=== PATIENT | male | born 1965 | race Caucasian/White ===

== ENCOUNTER 2021-01-04 16:26 | Inpatient (IN) | payer OTHER ==
[~2021-01-04] VITALS: Ht 175.3 cm; Wt 108.0 kg
[2021-01-04 17:03] LABS: HEMOGLOBIN 14.9 gm/dl (14.0-17.5); RED BLOOD COUNT 4.12 M/UL (4.20-5.50); WHITE BLOOD COUNT 4.6 K/UL (4.5-11.0)
[2021-01-04 17:24] LABS: BUN/CREATININE RATIO 35 (0-10)
[2021-01-05 02:24] LABS: HEMOGLOBIN 13.3 gm/dl (14.0-17.5); RED BLOOD COUNT 3.76 M/UL (4.20-5.50); WHITE BLOOD COUNT 3.5 K/UL (4.5-11.0)
[2021-01-05 02:51] LABS: BUN/CREATININE RATIO 33 (0-10)
--- NOTE | 2021-01-05 04:32 | NUR ---
UNABLE TO OBTAIN MOST HISTORY FROM PATIENT, HE ONLY STATED HE NEVER WENT TO THE DOCTOR. DAUGHTER WAS AT BEDSIDE DURING ASSESSMENT AND DOESN'T THINK HE TAKES MEDICAITON AT HOME. SOME MEDICAL HISTORY OBTAINED FROM DAUGHTER AND CHARTED.
[2021-01-06 06:04] LABS: BUN/CREATININE RATIO 18 (0-10)
[2021-01-07 04:24] LABS: HEMOGLOBIN 12.6 gm/dl (14.0-17.5); RED BLOOD COUNT 3.53 M/UL (4.20-5.50); WHITE BLOOD COUNT 2.9 K/UL (4.5-11.0)
[2021-01-07 04:55] LABS: BUN/CREATININE RATIO 16 (0-10)
[2021-01-07 06:12] LABS: HBSAG SCREEN Negative (Negative); HEP A AB, IGM Negative (Negative); HEP B CORE AB, IGM Negative (Negative); HEP C VIRUS AB <0.1 (0.0-0.9)
[2021-01-08 03:08] LABS: HEMOGLOBIN 12.8 gm/dl (14.0-17.5); RED BLOOD COUNT 3.6 M/UL (4.20-5.50); WHITE BLOOD COUNT 4.4 K/UL (4.5-11.0)
[2021-01-08 03:57] LABS: BUN/CREATININE RATIO 20 (0-10)
[2021-01-09 03:02] LABS: HEMOGLOBIN 12.5 gm/dl (14.0-17.5); RED BLOOD COUNT 3.53 M/UL (4.20-5.50); WHITE BLOOD COUNT 5.4 K/UL (4.5-11.0)
[2021-01-09 03:26] LABS: BUN/CREATININE RATIO 27 (0-10)
[2021-01-10 05:54] LABS: BUN/CREATININE RATIO 36 (0-10)
[2021-01-10 10:29] LABS: HEMOGLOBIN 13.2 gm/dl (14.0-17.5); RED BLOOD COUNT 3.71 M/UL (4.20-5.50); WHITE BLOOD COUNT 6.1 K/UL (4.5-11.0)
[2021-01-10 16:11] LABS: A/G RATIO 0.9 (0.7-1.7); ALBUMIN 3.1 g/dL (2.9-4.4); ALPHA-1-GLOBULIN 0.5 g/dL (0.0-0.4); BETA GLOBULIN 1.3 g/dL (0.7-1.3); GAMMA GLOBULIN 0.8 g/dL (0.4-1.8); GLOBULIN, TOTAL 3.6 g/dL (2.2-3.9); IMMUNOGLOBULIN A, QN, SERUM 584 mg/dL (90-386); IMMUNOGLOBULIN G, QN, SERUM 923 mg/dL (603-1613); IMMUNOGLOBULIN M, QN, SERUM 55 mg/dL (20-172); M-SPIKE Not Observed g/dL (Not Observed); PROTEIN, TOTAL, SERUM 6.7 g/dL (6.0-8.5)
[2021-01-11 04:39] LABS: HEMOGLOBIN 12.6 gm/dl (14.0-17.5); RED BLOOD COUNT 3.62 M/UL (4.20-5.50); WHITE BLOOD COUNT 6.5 K/UL (4.5-11.0)
[2021-01-11 05:08] LABS: BUN/CREATININE RATIO 37 (0-10)
--- NOTE | 2021-01-11 19:14 | NUR ---
patient ambulating in hallway using walker . tolerating wel without complication.
[2021-01-12 04:22] LABS: HEMOGLOBIN 12.9 gm/dl (14.0-17.5); RED BLOOD COUNT 3.71 M/UL (4.20-5.50); WHITE BLOOD COUNT 6.2 K/UL (4.5-11.0)
[2021-01-12 04:46] LABS: BUN/CREATININE RATIO 40 (0-10)
[2021-01-13 03:12] LABS: HEMOGLOBIN 13.7 gm/dl (14.0-17.5); RED BLOOD COUNT 3.93 M/UL (4.20-5.50); WHITE BLOOD COUNT 6.5 K/UL (4.5-11.0)
[2021-01-13 03:26] LABS: BUN/CREATININE RATIO 33 (0-10)
[2021-01-13] MEDS ORDERED: BETAPACE 80MG T80 MG PO (12:22)
[2021-01-13] MEDS ORDERED: AMLODIPINE BESYL5 MG PO (12:22)
[2021-01-13] MEDS ORDERED: VITAMIN B-650 MG PO (12:22)
[2021-01-13] MEDS ORDERED: ELIQUIS 5 MG TAB5 MG PO (12:22)
[2021-01-13] MEDS ORDERED: VITAMIN B-1100 M1 PO (12:22)
[2021-01-13] MEDS ORDERED: CATAPRES 0.1MG0.1 MG PO (12:22)
[2021-01-13] MEDS ORDERED: TAB-A-VITE TA400 MC1 PO (12:22)
[2021-01-13] MEDS ORDERED: ZYVOX600 MG PO (12:22)
== END 2021-01-13 18:19 | disposition home or self-care (01) | DRG 896 ==
LOC: ER1 16:26 → CCU 18:22 → CDU 18:22 → MED SURG 4 18:22 → PROG CARE 22:46 → CCU 01-05 11:00 → MED SURG 4 01-11 23:13
PROVIDERS: Emergency Medicine; Internal Medicine; Internal Medicine Pulmonary Disease; ADMIT Internal Medicine
PROC: 5A1945Z Respiratory Ventilation, 24-96 Consecutive Hours (ICD-10-PCS; principal; 2021-01-05)
PROC: 0BH17EZ Insertion of Endotracheal Airway into Trachea, Via Natural or Artificial Opening (ICD-10-PCS; principal; 2021-01-05)
PROC: B24BZZ4 Ultrasonography of Heart with Aorta, Transesophageal (ICD-10-PCS; 2021-01-06)
PROC: 5A2204Z Restoration of Cardiac Rhythm, Single (ICD-10-PCS; 2021-01-06)
DX: F10.139 Alcohol abuse with withdrawal, unspecified (principal); J96.01 Acute respiratory failure with hypoxia; J15.212 Pneumonia due to Methicillin resistant Staphylococcus aureus; I50.33 Acute on chronic diastolic (congestive) heart failure; G92 Toxic encephalopathy; J69.0 Pneumonitis due to inhalation of food and vomit; N17.0 Acute kidney failure with tubular necrosis; I48.92 Unspecified atrial flutter; M62.82 Rhabdomyolysis; J44.1 Chronic obstructive pulmonary disease with (acute) exacerbation; E87.1 Hypo-osmolality and hyponatremia; K70.9 Alcoholic liver disease, unspecified; I11.0 Hypertensive heart disease with heart failure; E87.8 Other disorders of electrolyte and fluid balance, not elsewhere classified; E66.01 Morbid (severe) obesity due to excess calories; I44.30 Unspecified atrioventricular block; I08.1 Rheumatic disorders of both mitral and tricuspid valves; E87.6 Hypokalemia; G47.33 Obstructive sleep apnea (adult) (pediatric); F17.210 Nicotine dependence, cigarettes, uncomplicated; D69.6 Thrombocytopenia, unspecified; Z79.01 Long term (current) use of anticoagulants; I25.2 Old myocardial infarction; Z83.3 Family history of diabetes mellitus; Z68.35 Body mass index [BMI] 35.0-35.9, adult; R73.9 Hyperglycemia, unspecified; K59.00 Constipation, unspecified
CPT/HCPCS: 31500; 36415; 36600; 71045; 71046; 71275; 80048; 80053; 80074; 80202; 80307; 81001; 82140; 82150; 82330; 82436; 82550; 82553; 82570; 82607; 82652; 82728; 82746; 82784; 82803; 82962; 83605; 83615; 83690; 83735; 83874; 83880; 83935; 83970; 84100; 84132; 84133; 84155; 84165; 84207; 84300; 84439; 84443; 84484; 85025; 85610; 85730; 86140; 86334; 86335; 87040; 87070; 87077; 87081; 87186; 87205; 92610; 93005; 93312; 93320; 93970; 94002; 94003; 94640; 94760; 96374; 96375; 97116-GP-CQ; 97162; 97166; 97535; 99285; C9113; G0480; J1940; J2020; J2060; J2185; J2250; J2704; J2920; J3010; J3360; J3370; J3411; J3475; J7030; J7040; J7070; Q9967; U0002

== ENCOUNTER → 2021-07-23 | Outpatient (CLI) | payer OTHER ==
[~2021-07-23] MED LIST: AMLODIPINE BESYL5 MG PO; BETAPACE 80MG T80 MG PO; CATAPRES 0.1MG0.1 MG PO; ELIQUIS 5 MG TAB5 MG PO; TAB-A-VITE TA400 MC1 PO; VITAMIN B-1100 M1 PO; VITAMIN B-650 MG PO; ZYVOX600 MG PO
== END ==
LOC: RAD 15:25
DX: M79.605 Pain in left leg (principal); M79.89 Other specified soft tissue disorders
CPT/HCPCS: 73590

== ENCOUNTER → 2022-01-24 | Outpatient (CLI) | payer OTHER ==
[~2022-01-24] MED LIST changes: +MUCINEX600 MG PO; +ZOFRAN 4 MG TAB4 MG PO
[2022-01-24 07:52] LABS: RED BLOOD COUNT 4.26 M/UL (4.20-5.50); WHITE BLOOD COUNT 6.2 K/UL (4.5-11.0)
[2022-01-24 08:13] LABS: BUN/CREATININE RATIO 23 (0-10)
== END ==
LOC: LAB 07:25
PROVIDERS: Physician Assistant
DX: R73.03 Prediabetes (principal); Z79.899 Other long term (current) drug therapy
CPT/HCPCS: 80053; 80061; 82607; 83036; 85025